=== PATIENT | female | born 1935 | race Caucasian/White ===

== ENCOUNTER → 2016-03-31 | Outpatient (CLI) | payer OTHER | LOC: MMPC 09:00 | PROVIDERS: ATTEND Family Medicine | DX: L03.115 Cellulitis of right lower limb (principal); L03.116 Cellulitis of left lower limb; R60.0 Localized edema | CPT/HCPCS: 99213; G0463 ==

== ENCOUNTER → 2016-06-07 | Outpatient (CLI) | payer OTHER | LOC: MMPC 09:00 | PROVIDERS: ATTEND Family Medicine | DX: F32.0 Major depressive disorder, single episode, mild (principal); M79.2 Neuralgia and neuritis, unspecified; F03.90 Unspecified dementia, unspecified severity, without behavioral disturbance, psychotic disturbance, mood disturbance, and anxiety; Z86.79 Personal history of other diseases of the circulatory system; Z86.73 Personal history of transient ischemic attack (TIA), and cerebral infarction without residual deficits | CPT/HCPCS: 99213; G0463 ==

== ENCOUNTER → 2016-07-19 | Outpatient (CLI) | payer OTHER | LOC: MMPC 09:00 | PROVIDERS: ATTEND Family Medicine | DX: F32.0 Major depressive disorder, single episode, mild (principal); F03.90 Unspecified dementia, unspecified severity, without behavioral disturbance, psychotic disturbance, mood disturbance, and anxiety | CPT/HCPCS: 99212; G0463 ==

== ENCOUNTER → 2016-08-23 | Outpatient (CLI) | payer OTHER ==
--- NOTE | 2016-08-23 14:02 | DI ---
MRI BRAIN W/O CN,08/23/2016 9:41 AM: Clinical History: Transient ischemic attack. Previous Exam: None at this facility. Findings: Multiplanar MR images are obtained through the brain without contrast, and demonstrate diffuse age-re lated volume loss. There are multiple scattered areas of increased FLAIR and T2 signal predominantly within the periventricular white matter. There is also some within the subcortical white matter. The lenses within both orbits there are asymmetric most consistent with prior surgery. There is no abnormally restricted diffusion. The midline structures are unremarkable except for the a ge-related volume loss. There is no parasellar mass. Cerebellopontine angles and posterior fossa are unremarkable. The clivus and upper cervical spine are unremarkable as well. Impression: Diffuse age-related volume loss and multiple scattered areas of increased FLAIR and T2 signal through out the white matter bilaterally most consistent with diffuse small vessel ischemic change.
== END ==
LOC: MRI 09:31
PROVIDERS: ATTEND Family Medicine
DX: G45.9 Transient cerebral ischemic attack, unspecified (principal); I99.8 Other disorder of circulatory system
CPT/HCPCS: 70551

== ENCOUNTER → 2016-08-24 | Outpatient (CLI) | payer OTHER | LOC: US 08:53 | PROVIDERS: ATTEND Family Medicine | DX: I10 Essential (primary) hypertension (principal); R06.00 Dyspnea, unspecified; I27.2 Other secondary pulmonary hypertension; I05.0 Rheumatic mitral stenosis | CPT/HCPCS: 93306 ==

== ENCOUNTER 2018-02-20 01:51 | Inpatient (IN) ==
[2018-02-20] MEDS ORDERED: ONDANSETRON 4 MG/2 ML VIAL IVP ONE (02:01)
[2018-02-20] MEDS ORDERED: Sodium Chloride 0.9% 1,000 ML PRIMARY IV ONE (02:01)
[2018-02-20] MEDS ORDERED: Acetaminophen 1000mg Inj 1,000 MG/100 ML VIAL IV PRN (02:01)
[2018-02-20] MEDS ORDERED: LIDOCAINE HCL 2 % 10 ML JELLY URO-JECT TOPICAL PRN ×3 (02:02→06:18)
--- NOTE | 2018-02-20 02:04 | PDOC ---
Fall HPI - General Chief Complaint: Fall Stated Complaint: right arm/facial pain wounds after fall Date Seen by Provider: 02/20/18 Time Seen by Provider: 01:55 Source: POSITIVE: Patient, EMS, skilled nursing records Exam Limitations: POSITIVE: Clinical condition Nurse's Notes Reviewed & Considered: Yes - Record Incomplete EMS Report Reviewed & Considered: Verbal - History of Present Illness Initial Comments: This is a well-developed, well-nourished, uncooperative, 82-year-old female complaining of right shoulder pain. Patient was attempting to get out of bed to go to the bathroom in the alf tonight when she lost her balance and fell to the right side striking her right lateral supraorbital ridge against corner of the wall resulting in laceration to the brow with evulsion lacerations to her right forearm and upper arm as well as pain and decreased movement in her right shoulder. EMS was called to transport the patient here and reports that her right pupil was unreactive. Patient continues to yell and scream and is unable to answer questions and further review of systems is unavailable. Have you received a tetanus shot in the past 10 years?: Unknown Body Location Affected: REPORTS: Head, Upper Extremity (R) Timing: REPORTS: Abrupt Duration: 1/2 hour Severity: Severe Context of Fall: REPORTS: Lost Balance Location of Fall: REPORTS: Home Quality: REPORTS: "Pain" Associated Symptoms: REPORTS: Recalls Injury, Recalls Coming to ER Location of Injuries / Pain: REPORTS: Right, Face, Shoulder, Arm, Forearm Any Prior Injuries Related to Current Complaint?: No - Patient Home Medications Home Medications: Home Medications Oxygen (O2) 3 unit NASAL Continuous #2 unit 09/13/12 Metoprolol Tartrate 25 mg PO BID #60 tab 02/08/15 Pantoprazole Sodium 1 tab PO DAILY #90 tab 03/25/15 Acetaminophen [Tylenol Extra Strength] 1 tab PO TID PRN tab 09/28/15 Mag Hydrox/Aluminum Hyd/Simeth [Antacid Suspension] 30 ml PO Q8H PRN ml 09/29/15 Albuterol Neb Soln 0.083% 1 vial IH QID PRN vial 11/19/15 Menthol/Camphor [Anti-Itch Lotion] 222 ml TOPICAL QD PRN #1 bottle 11/24/15 Aspirin [Aspir 81] 1 tab PO QD tab 12/22/15 Rgnbo-D-Ojvgtzzhzzvtv [Beano] 1 ea PO TIDWM tab 01/11/16 Simethicone [Gas-X] 1 tab PO TID PRN tab 01/11/16 Albuterol Sulfate [Proair Hfa] 1 - 2 puff INH q1 hour PRN puff 02/04/16 Vit Calc,Iron,Folic [ Vitamins] 1 ea PO QD tab 02/18/16 Spironolactone [Aldactone] 1 tab PO DAILY #30 tab 02/18/16 Levothyroxine Sodium 1 tab PO DAILY tab 03/31/16 Clotrimazole 1 applic TOPICAL BID PRN #1 tube 05/25/16 Ondansetron Odt [Zofran ODT] 4 mg SL Q6H PRN #20 tab 01/21/17 hyoscyamine sulfate 0.125 mg tablet 0.125 mg PO QID PRN 01/26/17 ibuprofen 400 mg tablet 400 mg PO Q4-6H PRN 01/26/17 lidocaine 2 % mucosal jelly 1 applic TOPICAL QID 01/26/17 alprazolam 1 mg tablet 1 mg PO TID #30 tab 03/15/17 Budesonide/Formoterol Fumarate [SYMBICORT] 160 mcg INH BID 03/25/17 Emollient Combination No.33 [Eucerin] 1 applic TOPICAL QHS 03/25/17 Polyethylene Glycol 3350 [Miralax] 17 gm PO QAM 03/25/17 escitalopram 20 mg tablet 20 mg PO QDAY #30 tab 08/17/17 topiramate 25 mg tablet 25 mg PO QDAY #30 tab 08/20/17 tramadol 50 mg tablet 50 mg PO Q4H PRN #90 tab 10/31/17 amlodipine 2.5 mg tablet 2.5 mg PO DAILY #90 tab 01/11/18 - Patient Allergies Allergies/Adverse Reactions: Allergies Allergy/AdvReac Type Severity Reaction Status Date / Time codeine Allergy Mild ITCHING Verified 02/20/18 02:21 atorvastatin calcium AdvReac Muscle Verified 02/20/18 02:21 [From Lipitor] aches Past Medical History - heen HEENT History: Denies History Cardiovascular History: Hypertension, CHF Respiratory History: COPD, Home Oxygen Use, Tuberculosis Additional Respiratory History: 2 LPM, TB A CHILD. Gastrointestinal History: GERD Genitourinary History: Denies History Additional Genitourinary History: FULL HYSTERECTOMY. Endocrine History: Hypothyroidism Additional Endocrine History: states not taking meds Musculoskeletal History: Arthritis, Fibromyalgia, Physical Limitation Prosthesis or Implant: No Neurological History: Migraines Blood Disorders: Denies History Psychiatric History: Depression, Anxiety Disorders, Self-Harm Disorders Additional Psychiatric History: SUICIDAL IDEATION 40 YEARS AGO History of Sexually Transmitted Diseases: No Cancer History: Denies History History of MDRO: No History of Other Communicable Diseases: No Alcohol Use: None In the Past 12 Months, Have Used or Abuse Any Substance: None Previous Surgical History: Yes Type / Date of Surgery: FULL HYSTERECTOMY Anesthesia Reactions: No Malignant Hyperthermia: No Significant Family History: No pertinent family hx ROS - Limitations ROS Limitations: Uncooperative (Further review of systems is unavailable.) Fall Physical Exam - General Appearance General Appearance: POSITIVE: Alert, Severe Distress, Uncooperative - HEENT HEENT: POSITIVE: Eyes Inspection Nml, Ears Inspection Nml, Nose Inspection Nml, Oral/Dental Inspect. Nml, Pharynx Inspect. Nml, PERRL, EOMI, Other (Patient with a laceration of the right lateral supraorbital ridge) - Pupil Size Pupil Size: 4 mm: Bilateral - Neck Neck: POSITIVE: Trachea Midline, Decreased ROM (Secondary to pain) - Respiratory / CVS Respiratory / CVS: POSITIVE: No Ecchymosis, Breath Sounds Normal, No Respiratory Distress, Heart Sounds Normal, Regular Rate/Rhythm, Rib Tenderness (No bruising, no crepitus is appreciated. Right lateral ribs) Peripheral Pulses: Radial (R): 4+, Radial (L): 4+ - Abdomen Abdomen: Soft: (All Quadrants), Normal Bowel Sounds: (All Quadrants), Denies Tenderness: (All Quadrants), No Splenomegaly: (All Quadrants), No Hepatomegaly: (All Quadrants), No Guarding: (All Quadrants), No Rebound: (All Quadrants), No Palpable Pulse: (All Quadrants), No Palpabale Mass: (All Quadrants), No Distention: (All Quadrants), No Rigidity: (All Quadrants) - Neuro / Psych Neuro / Psych: POSITIVE: Motor Normal, Sensation Normal, Mood Appropriate, Affect Appropriate - Skin Skin: POSITIVE: Laceration (Right supraorbital ridge and multiple skin avulsions of her right arm.) - Back Back: POSITIVE: Normal Inspection, No CVA Tenderness, Non Tender, Painless ROM, No Vertebral Tenderness - Extremities Extremity Assessment: Non-Tender: (LUE), (RLE), (LLE), Normal ROM: (LUE), (RLE), (LLE), No Edema: (ALL), Normal Inspection: (LLE), (RLE), (LUE), No Swelling: (ALL), Pelvis Stable: (ALL), Normal Tendon Exam: (ALL), Tender: (RUE), Abnormal ROM: (RUE), Ecchymosis: (RUE), Hematoma: (RUE), Avulsion: (RUE) Fall Progress - Results Reviewed by me Xrays/CTs/US Reviewed by me: Yes Discussed with Radiologist: Yes Lab Results Reviewed by Me: Yes CBC and BMP: 02/20/18 02:35 02/20/18 02:35 Lab Results:: Laboratory Results 02/20/18 02/20/18 02/20/18 02:35 02:35 02:35 WBC 10.25 RBC 3.36 L Hgb 10.2 L Hct 31.6 L MCV 94.0 MCH 30.4 MCHC 32.3 L RDW Std Deviation 42.4 RDW Coeff of Earnest 12.8 Plt Count 323 MPV 9.7 Immature Gran % (Auto) 0.4 Neut % (Auto) 62.6 Lymph % (Auto) 27.4 Slope % (Auto) 6.3 Eos % (Auto) 2.8 Baso % (Auto) 0.5 Immature Gran # (Auto) 0.04 Neut # (Auto) 6.41 Lymph # (Auto) 2.81 Slope # (Auto) 0.65 Eos # (Auto) 0.29 Baso # (Auto) 0.05 WBC Morphology Comment Normal morphology Plt Morphology Comment Normal morphology RBC Morph Comment Normal morphology PT 10.1 INR 0.98 Sodium Potassium Chloride Carbon Dioxide Anion Gap BUN Creatinine Estimated GFR BUN/Creatinine Ratio Glucose Calculated Osmolality Calcium Total Bilirubin AST ALT Alkaline Phosphatase C-Reactive Protein Total Protein Albumin Globulin Albumin/Globulin Ratio Ur Collection Type Cath specimen Urine Color Yellow Urine Clarity Clear Urine pH 5.5 Ur Specific Union 1.010 Urine Protein Negative Urine Glucose (UA) Negative Urine Ketones Negative Urine Occult Blood Negative Urine Nitrate Negative Urine Bilirubin Negative Urine Urobilinogen 0.2 Ur Leukocyte Esterase Negative Ur Culture Indicated? Culture not set 12/26/18 02:35 WBC RBC Hgb Hct MCV MCH MCHC RDW Std Deviation RDW Coeff of Earnest Plt Count MPV Immature Gran % (Auto) Neut % (Auto) Lymph % (Auto) Slope % (Auto) Eos % (Auto) Baso % (Auto) Immature Gran # (Auto) Neut # (Auto) Lymph # (Auto) Slope # (Auto) Eos # (Auto) Baso # (Auto) WBC Morphology Comment Plt Morphology Comment RBC Morph Comment PT INR Sodium 133 L Potassium 5.9 H Chloride 103 Carbon Dioxide 20 L Anion Gap 10 BUN 26 H Creatinine 1.5 H Estimated GFR Blast Hole Driller BUN/Creatinine Ratio 17.33 Glucose 95 Calculated Osmolality 280.0 Calcium 9.5 Total Bilirubin 0.3 AST 28 ALT 24 Alkaline Phosphatase 57 C-Reactive Protein 1.4 H Total Protein 7.3 Albumin 4.2 Globulin 3.1 Albumin/Globulin Ratio 1.30 Ur Collection Type Urine Color Urine Clarity Urine pH Ur Specific Union Urine Protein Urine Glucose (UA) Urine Ketones Urine Occult Blood Urine Nitrate Urine Bilirubin Urine Urobilinogen Ur Leukocyte Esterase Ur Culture Indicated? - Patient's Progress Re-Examine Time:: 05:39 Status: POSITIVE: Improved MDM / ED Course: Patient was evaluated, an IV started, blood drawn and sent to the lab for studies, CT of the chest x-ray were obtained. Findings: CBC shows an anemia with a hemoglobin of 10.2 and hematocrit of 31.6. Coag studies show PT of 10.1 and INR 0.98. Comprehensive metabolic panel shows electrolytes dyscrasias and renal failure with a sodium of 133, potassium of 5.9, CO2 of 20, BUN of 26, creatinine 1.5. CRP is 1.4. Urinalysis is negative. Chest x-ray shows no acute cardio James decompensation with comminuted right humeral head fracture. X-ray of her shoulder shows comminuted displaced humeral head fracture. CT scan of her shoulder with 3-D reconstruction shows comminuted displaced humeral head fracture. Assessment: #1 humeral head fracture. #2 hyperkalemia #3 anemia. Plan: Patient being admitted by the hospitalist I consult to Dr. Davis, the on- call orthopedic surgeon who will see the patient later this morning. - Consult Consult (If Yes, Name of Consulting MD & Time Called): Yes (Dr. Davis 0540 hrs 0545hrs) Consulting MD will see pt:: POSITIVE: [facility] Admit Counseled: POSITIVE: Patient, RE: Lab Results, RE: Radiology Results, RE: DX, RE: Need for F/U Patient Care Time - Estimated PCT Patient Care Time (In Minutes): 60 Vital Signs - Recent Vital Signs Vital Signs: Vital Signs (Last 8 hours) Temp Pulse Pulse Resp BP BP Pulse Ox 02/20/18 04:20 80 22 92/59 93 02/20/18 04:11 72 18 99 02/20/18 04:10 71 18 92 02/20/18 03:40 71 22 110/53 93 02/20/18 03:30 70 20 106/79 94 02/20/18 03:15 74 20 122/73 95 02/20/18 02:47 97.4 F 73 20 119/71 96 - VS Reviewed Vital Signs Reviewed: Yes Discharge Clinical Impression: Fracture of bone, Humeral head fracture, Anemia, Hyperkalemia, Renal failure Condition: Poor Follow Up With: MOE DEMARCO [Primary Care Provider] - Date Decision to Admit to Inpatient: 02/20/18 Time Decision to Admit to Inpatient: 05:46
[2018-02-20 02:41] LABS: BASOPHILS # (AUTO) 0.05 10*3/UL; BASOPHILS % (AUTO) 0.5 % (0-1); EOSINOPHILS # (AUTO) 0.29 10*3/UL; EOSINOPHILS % (AUTO) 2.8 % (0-8); Hematocrit [HCT] 31.6 % (37.0-47.0); Hemoglobin [HGB] 10.2 g/dL (12.0-16.0); LYMPHOCYTES # (AUTO) 2.81 10*3/uL; MEAN CORPUSCULAR HEMOGLOBIN 30.4 PG (27-31); MEAN CORPUSCULAR HGB CONC 32.3 g/dL (33-37); MEAN PLATELET VOLUME 9.7 FL (7.4-12.2); MONOCYTES # (AUTO) 0.65 10*3/UL (0.3-0.8); MONOCYTES % (AUTO) 6.3 % (5-15); NEUTROPHILS # (AUTO) 6.41 10*3/UL; NEUTROPHILS % (AUTO) 62.6 % (50-80); RED BLOOD COUNT 3.36 10^6/uL (4.20-5.40)
[2018-02-20 02:42] LABS: PLATELET MORPHOLOGY COMMENT NORMAL MORPHOLOGY (NORM); RBC MORPHOLOGY COMMENT NORMAL MORPHOLOGY (NORM); WBC MORPHOLOGY COMMENT NORMAL MORPHOLOGY (NORM)
[2018-02-20 02:50] LABS: BILIRUBIN,URINE NEGATIVE (NEG); CLARITY,URINE CLEAR (CLEAR); COLOR,URINE YELLOW (Y); GLUCOSE, URINE (UA) NEGATIVE (NEG); OCCULT BLOOD,URINE NEGATIVE (NEG); PH,URINE 5.5 (5.0-8.5); PROTEIN,URINE NEGATIVE (NEG); URINE SAMPLE TYPE CATH SPECIMEN; UROBILINOGEN,URINE 0.2 EU/dL (0.2)
[2018-02-20 02:54] LABS: BLOOD UREA NITROGEN 26 mg/dL (7-22); BUN/CREATININE RATIO 17.33 (6-20); SERUM ALBUMIN 4.2 g/dL (3.5-4.8)
[2018-02-20] MEDS ORDERED: MORPHINE SULFATE 4 MG/1 ML IVP ONE (03:02)
[2018-02-20] MEDS ORDERED: ALBUTEROL SULFATE 2.5 MG/3 ML NEB ONE ×3 (03:06→15:23)
[2018-02-20] MEDS ORDERED: SODIUM POLYSTYRENE SULFONATE 15 GM/60 ML PO ONE (03:06)
[2018-02-20] MEDS ORDERED: LORazepam 2 MG/1 ML VIAL IVP ONE (03:08)
--- NOTE | 2018-02-20 04:59 | DI ---
EXAM: XR Chest, 1 View CLINICAL HISTORY: ITS.REASON fall Physician Notes: Tech Comments: TECHNIQUE: Frontal view of the chest. COMPARISON: 09/19/2015 FINDINGS: Lungs: Unremarkable. No consolidation. Pleural space: No large pleural effusion or pneumothorax. Heart: Cardiac silhouette appears to be improved from previous exam. Mediastinum: Unremarkable. Bones/joints: Displaced proximal right humeral fracture. Lymph nodes: Calcified right paratracheal lymph node is similar to previous exam. IMPRESSION: No focal consolidation noted. No large pleural effusion or pneumothorax. Displaced right proximal humeral fracture.
--- NOTE | 2018-02-20 05:00 | DI ---
EXAM: XR Right Shoulder Complete, 2 or More Views CLINICAL HISTORY: ITS.REASON fall Physician Notes: Tech Comments: TECHNIQUE: Two or more views of the right shoulder. COMPARISON: No relevant prior studies available. FINDINGS: Limitations: Portable technique limits penetration. Bones/joints: Comminuted fracture involving the proximal right humeral head. There appears to be mild anterior displacement of the humeral diaphysis in relation to the humeral head. No obvious dislocation on the scapular view. Soft tissues: Unremarkable. IMPRESSION: Comminuted fracture involving the proximal right humeral head. There appears to be mild anterior displacement of the humeral diaphysis in relation to the humeral head.
--- NOTE | 2018-02-20 05:26 | DI ---
EXAM: CT Head Without Intravenous Contrast CLINICAL HISTORY: fall TECHNIQUE: Axial computed tomography images of the head/brain without intravenous contrast. COMPARISON: 03/24/2017 FINDINGS: Brain: Cerebral atrophy is stable from previous exam. Periventricular and subcortical deep white matter changes are similar to previous exam. No hemorrhage. Ventricles: Unremarkable. No ventriculomegaly. Bones/joints: Unremarkable. No acute fracture. Soft tissues: Unremarkable. Sinuses: Unremarkable as visualized. No acute sinusitis. Mastoid air cells: Unremarkable as visualized. No mastoid effusion. IMPRESSION: No acute intracranial process or significant traumatic injury identified. Chronic underlying incidental findings noted above.
--- NOTE | 2018-02-20 05:33 | DI ---
EXAM: CT Right Upper Extremity Without Intravenous Contrast, Shoulder CLINICAL HISTORY: Fracture. TECHNIQUE: Axial computed tomography images of the right shoulder without intravenous contrast. 3D reconstructed images were created and reviewed. COMPARISON: No relevant prior studies available. FINDINGS: Bones/joints: Comminuted displaced fracture involving the lateral head and greater tubercle of the proximal right humerus. There is anterior displacement of the proximal humeral diaphysis which appears to be foreshortened and somewhat perched on the humeral head. The humeral head remains within the glenoid fossa. Visualized ribs and right clavicle are unremarkable. The scapula is intact. The acromioclavicular joint appears to be maintained. Soft tissues: Minimal suspected edema. Detail limited without contrast. Minimal joint effusion suspected. Lymph nodes: Calcified paratracheal lymph nodes noted. Lung apices: Minimal dependent subsegmental atelectasis at the visualized lung is noted. IMPRESSION: Comminuted and displaced fracture involving the lateral head and greater tubercle of the proximal right humerus. There is anterior displacement of the proximal humeral diaphysis which appears to be foreshortened and somewhat perched on the humeral head. The humeral head remains within the glenoid fossa.
[2018-02-20] MEDS ORDERED: LIDOCAINE W/ SODIUM BICARB 0.5 ML SYR SUBD PRN (06:18)
[2018-02-20] MEDS ORDERED: ALBUTEROL SULFATE 2.5 MG/3 ML NEB PRN (06:18)
[2018-02-20] MEDS ORDERED: HYDROmorphone 2 MG/1 ML IVP PRN ×2 (06:18→10:00)
[2018-02-20] MEDS ORDERED: INSULIN REGULAR, HUMAN 100 UNIT/1 ML - 3 ML SUBCUT ONE (06:18)
[2018-02-20] MEDS ORDERED: CALCIUM CARBONATE 500 MG (TUMS) CHEWABLE TABLET PO PRN (06:18)
[2018-02-20] MEDS ORDERED: ACETAMINOPHEN 325 MG TABLET PO PRN (06:18)
[2018-02-20] MEDS ORDERED: [UNRECOGNIZED DRUG - OTHER] TOPICAL SCH (06:18)
[2018-02-20] MEDS ORDERED: Calcium Gluconate Inj 1,000 MG in Sodium Chloride 0.9% 100 ML IV ONE ×2 (06:18→15:23)
[2018-02-20] MEDS ORDERED: DEXTROSE 50%-WATER SYRINGE 50 ML SYRINGE IVP ONE ×2 (06:18→15:23)
[2018-02-20] MEDS ORDERED: HYDROcodone-APAP 5 MG -325 MG TABLET PO PRN (06:18)
[2018-02-20] MEDS ORDERED: DOCUSATE 100 MG CAPSULE PO PRN (06:18)
[2018-02-20] MEDS ORDERED: HYOSCYAMINE SULFATE 0.125 MG PO PRN (06:18)
[2018-02-20] MEDS ORDERED: FUROSEMIDE 10 MG/1 ML - 2 ML VIAL IVP ONE ×2 (06:18→15:23)
[2018-02-20] MEDS ORDERED: POLYETHYLENE GLYCOL 3350 17 GM POWDER PO SCH ×2 (06:18→09:00)
[2018-02-20] MEDS ORDERED: ONDANSETRON 4 MG/2 ML VIAL IVP PRN (06:18)
[2018-02-20] MEDS ORDERED: ALPRAZolam Tab 1 MG TABLET PO PRN ×2 (06:18→11:51)
[2018-02-20] MEDS: Sodium Chloride 0.9% 1,000 ML PRIMARY IV SCH ×3 (06:44→23:46)
[2018-02-20] MEDS ORDERED: ESCITALOPRAM 10 MG TABLET PO SCH ×2 (06:45→09:00)
[2018-02-20] MEDS ORDERED: LEVOTHYROXINE 50 MCG TABLET PO SCH (06:45)
[2018-02-20] MEDS: SODIUM POLYSTYRENE SULFONATE 15 GM/60 ML PO SCH ×2 (07:58→13:40)
[2018-02-20] MEDS ORDERED: Metoprolol TARTRATE Tab 25 MG TAB PO SCH (09:00)
[2018-02-20] MEDS ORDERED: Topiramate Tab 50 MG TAB PO SCH (09:00)
[2018-02-20] MEDS ORDERED: BUDESONIDE INH SCH (09:00)
[2018-02-20] MEDS ORDERED: PANTOPRAZOLE 40 MG TABLET PO SCH (09:00)
[2018-02-20] MEDS ORDERED: FORMOTEROL FUMARATE INH SCH (09:00)
[2018-02-20] MEDS ORDERED: AmLODIPine Tab 2.5 MG TABLET PO SCH (09:00)
--- NOTE | 2018-02-20 09:06 | CONSULT ---
Consult Note - Consult Reason for Consult: Orthopedic Consult Primary Care Provider: Gael Nelson MD - History of Present Illness History of Present Illness: This is an 82-year-old female who fell at the [facility] this morning. She sustained a highly comminuted four-part fracture of the proximal humerus. I spoke with her son Chaim who lives in [facility] in [place]. He apparently is the power of regroover. He told me that his mother has Alzheimer's dementia although she doesn't want to admit it. He told me also that she has had "a lot of falls lately". He has been concerned about this. He is the only living son. His 2 other siblings have passed on. He told me that his mother mostly lies in bed and doesn't do much walking. The patient complains of expected pain of the right arm although she did not recall having a son. Right upper extremity shows the skin to be intact around the shoulder. Minimal swelling. Some skin tearing of the forearm with Steri-Strips in place. She is able to wiggle her fingers. X-rays and CAT scan have been reviewed of the right upper extremity. The show a highly comminuted four-part proximal humerus fracture with anterior displacement of the shaft relative to the head. The head is not dislocated. Impression: Four-part proximal humerus fracture right in a patient with dementia. Plan: Fixing this is not an option given the amount of comminution. The options include either nonoperative expectant management versus a reverse shoulder arthroplasty. Reverse arthroplasty is not something that I performed. If she decides to go this route, she will likely need to be transferred to someone that can perform this operation. That would likely mean either going south towards [place] or possibly [place]. I will discuss this with Dr. Hunter when he arrives. We can then make a joint decision along with the son. Past Medical History Medical History: Congestive heart failure, COPD, hypertension, anxiety Family History: Reviewed an Not Pertinent (Patient does not volunteer family history) Tobacco Use: Never Smoker In the Past 12 Months, Have Used or Abuse Any of the Following Substance: None Medication / Allergies Home Medications: Home Medications Medication Instructions Recorded Confirmed Type Oxygen (O2) 3 unit NASAL Continuous #2 unit 09/13/12 02/20/18 History Metoprolol Tartrate 25 mg PO BID #60 tab 02/08/15 02/20/18 History Pantoprazole Sodium 1 tab PO DAILY #90 tab 03/25/15 02/20/18 History Acetaminophen [Tylenol Extra 1 tab PO TID PRN tab 09/28/15 02/20/18 History Strength] Mag Hydrox/Aluminum Hyd/Simeth 30 ml PO Q8H PRN ml 09/29/15 02/20/18 History [Antacid Suspension] Albuterol Neb Soln 0.083% 1 vial IH QID PRN vial 11/19/15 02/20/18 History Menthol/Camphor [Anti-Itch Lotion] 222 ml TOPICAL QD PRN #1 bottle 11/24/15 02/20/18 History Aspirin [Aspir 81] 1 tab PO QD tab 12/22/15 02/20/18 History Gcatn-I-Ktdrmhmoknlyf [Beano] 1 ea PO TIDWM tab 01/11/16 02/20/18 History Simethicone [Gas-X] 1 tab PO TID PRN tab 01/11/16 02/20/18 History Albuterol Sulfate [Proair Hfa] 1 - 2 puff INH q1 hour PRN puff 02/04/16 02/20/18 History Vit Calc,Iron,Folic 1 ea PO QD tab 02/18/16 02/20/18 History [ Vitamins] Spironolactone [Aldactone] 1 tab PO DAILY #30 tab 02/18/16 02/20/18 Rx Levothyroxine Sodium 1 tab PO DAILY tab 03/31/16 02/20/18 History Clotrimazole 1 applic TOPICAL BID PRN #1 tube 05/25/16 02/20/18 History Ondansetron Odt [Zofran ODT] 4 mg SL Q6H PRN #20 tab 01/21/17 02/20/18 Rx hyoscyamine sulfate 0.125 mg tablet 0.125 mg PO QID PRN 01/26/17 02/20/18 History ibuprofen 400 mg tablet 400 mg PO Q4-6H PRN 01/26/17 02/20/18 History lidocaine 2 % mucosal jelly 1 applic TOPICAL QID 01/26/17 02/20/18 History alprazolam 1 mg tablet 1 mg PO TID #30 tab 03/15/17 02/20/18 Rx Budesonide/Formoterol Fumarate 160 mcg INH BID 03/25/17 02/20/18 History [SYMBICORT] Emollient Combination No.33 1 applic TOPICAL QHS 03/25/17 02/20/18 History [Eucerin] Polyethylene Glycol 3350 [Miralax] 17 gm PO QAM 03/25/17 02/20/18 History escitalopram 20 mg tablet 20 mg PO QDAY #30 tab 08/17/17 02/20/18 Rx topiramate 25 mg tablet 25 mg PO QDAY #30 tab 08/20/17 02/20/18 Rx tramadol 50 mg tablet 50 mg PO Q4H PRN #90 tab 10/31/17 02/20/18 History amlodipine 2.5 mg tablet 2.5 mg PO DAILY #90 tab 01/11/18 02/20/18 Rx Allergies/Adverse Reactions: Allergies Allergy/AdvReac Type Severity Reaction Status Date / Time codeine Allergy Mild ITCHING Verified 02/20/18 06:20 atorvastatin calcium AdvReac Muscle Verified 02/20/18 06:20 [From Lipitor] aches Exam - Vitals Vital Signs: Vital Signs Temperature 97.6 F Temperature Source Temporal Artery Scan Pulse Rate [Pulse Oximeter] 79 Pulse Rate 90 Respiratory Rate 18 Blood Pressure [Left Arm] 129/63 Blood Pressure 92/59 Pulse Ox 94 Oxygen Flow Rate 2 Oxygen Delivery Method Nasal Cannula Height 5 ft 2 in Weight 154 lb 12.8 oz Results - Labs CBC and BMP: 02/20/18 02:35 02/20/18 02:35
--- NOTE | 2018-02-20 10:15 | EKG ---
[address] [place] [id number] Measurements Intervals [place] Rate: 81 P: 29 MD: 169 QRS: 15 QRSD: 74 T: 4 QT: 366 QTc: 403 Interpretive Statements SINUS RHYTHM LOW QRS VOLTAGE IN PRECORDIAL LEADS Compared to ECG 03/26/2017 09:12:30 Sinus arrhythmia no longer present Myocardial infarct finding no longer present Electronically Signed On 02-20-18 11:17:57 MST by Rian Redd [email or web address]
[2018-02-20 10:31] LABS: BLOOD UREA NITROGEN 23 mg/dL (7-22); BUN/CREATININE RATIO 19.16 (6-20)
--- NOTE | 2018-02-20 11:44 | PDOC ---
HPI - History of Present Illness Date of Service: 02/20/18 Time of Service: 11:39 Chief Complaint: Right shoulder pain History of Present Illness: This is an 82-year-old female with advanced dementia, severe anxiety, amongst other medical issues who apparently has been having more falls [place] the local [place]. She presented after a fall that was unwitnessed as far as I can tell, and her history is compromised completely by her dementia. The only thing she complains to me about his right shoulder pain. It is obviously swollen. X-rays and CT scan were positive for a comminuted humeral head fracture on the right side. She has developed kidney failure with a high potassium. There were no peaked T waves, luckily, on EKG. I cannot get any information on exacerbating factors from the patient because of her dementia at all. There were no documented fevers in the emergency room. Urinalysis was done and it appears negative. Pain medications thus far have not been controlling the patient's pain to a great degree. I spoke with the patient's son, Chaim, at [phone], and after risks and benefits of surgery versus a conservative approach to the healing of this fracture, he currently favors a conservative approach. Past Medical History Medical History: Congestive heart failure, COPD, hypertension, anxiety, depression, advanced dementia Surgical History: I cannot obtain this information from the patient due to her dementia. On my review of her medical record, the following surgeries were listed. History of esophagogastroduodenoscopy. Status post carpal tunnel release. Status post hysterectomy. Status post laser cataract surgery Family History: Reviewed an Not Pertinent (Patient does not volunteer family history) Pertinent Family History: I cannot obtain this from the patient due to her ary ntia. She has 2 children that have passed on on my review of the medical record. Past Social History: Patient does not smoke or drink alcohol. She resides at [facility]. She has 1 son, Chaim, , who lives in [place], [place]. Tobacco Use: Former Smoker (On my review of the medical record, the patient had a history of smoking in the past.) In the Past 12 Months, Have Used or Abuse Any of the Following Substance: None Alcohol Use: None Medication / Allergies Home Medications: Home Medications Medication Instructions Recorded Confirmed Type Oxygen (O2) 3 unit NASAL Continuous #2 unit 09/13/12 02/20/18 History Metoprolol Tartrate 25 mg PO BID #60 tab 02/08/15 02/20/18 History Pantoprazole Sodium 1 tab PO DAILY #90 tab 03/25/15 02/20/18 History Acetaminophen [Tylenol Extra 1 tab PO TID PRN tab 09/28/15 02/20/18 History Strength] Mag Hydrox/Aluminum Hyd/Simeth 30 ml PO Q8H PRN ml 09/29/15 02/20/18 History [Antacid Suspension] Albuterol Neb Soln 0.083% 1 vial IH QID PRN vial 11/19/15 02/20/18 History Menthol/Camphor [Anti-Itch Lotion] 222 ml TOPICAL QD PRN #1 bottle 11/24/15 02/20/18 History Aspirin [Aspir 81] 1 tab PO QD tab 12/22/15 02/20/18 History Cyhyr-Y-Qifvirqbkhncb [Beano] 1 ea PO TIDWM tab 01/11/16 02/20/18 History Simethicone [Gas-X] 1 tab PO TID PRN tab 01/11/16 02/20/18 History Albuterol Sulfate [Proair Hfa] 1 - 2 puff INH q1 hour PRN puff 02/04/16 02/20/18 History Vit Calc,Iron,Folic 1 ea PO QD tab 02/18/16 02/20/18 History [ Vitamins] Spironolactone [Aldactone] 1 tab PO DAILY #30 tab 02/18/16 02/20/18 Rx Levothyroxine Sodium 1 tab PO DAILY tab 03/31/16 02/20/18 History Clotrimazole 1 applic TOPICAL BID PRN #1 tube 05/25/16 02/20/18 History Ondansetron Odt [Zofran ODT] 4 mg SL Q6H PRN #20 tab 01/21/17 02/20/18 Rx hyoscyamine sulfate 0.125 mg tablet 0.125 mg PO QID PRN 01/26/17 02/20/18 History ibuprofen 400 mg tablet 400 mg PO Q4-6H PRN 01/26/17 02/20/18 History lidocaine 2 % mucosal jelly 1 applic TOPICAL QID 01/26/17 02/20/18 History alprazolam 1 mg tablet 1 mg PO TID #30 tab 03/15/17 02/20/18 Rx Budesonide/Formoterol Fumarate 160 mcg INH BID 03/25/17 02/20/18 History [SYMBICORT] Emollient Combination No.33 1 applic TOPICAL QHS 03/25/17 02/20/18 History [Eucerin] Polyethylene Glycol 3350 [Miralax] 17 gm PO QAM 03/25/17 02/20/18 History escitalopram 20 mg tablet 20 mg PO QDAY #30 tab 08/17/17 02/20/18 Rx topiramate 25 mg tablet 25 mg PO QDAY #30 tab 08/20/17 02/20/18 Rx tramadol 50 mg tablet 50 mg PO Q4H PRN #90 tab 10/31/17 02/20/18 History amlodipine 2.5 mg tablet 2.5 mg PO DAILY #90 tab 01/11/18 02/20/18 Rx Allergies/Adverse Reactions: Allergies Allergy/AdvReac Type Severity Reaction Status Date / Time codeine Allergy Mild ITCHING Verified 02/20/18 06:20 atorvastatin calcium AdvReac Muscle Verified 02/20/18 06:20 [From Lipitor] aches Review of Systems - Review of Systems ROS Unobtainable: Due to Mental Status (Due to her dementia I cannot obtain a review systems.) Exam - Vitals Vital Signs: Vital Signs Temperature 97.8 F Temperature Source Temporal Artery Scan Pulse Rate [Pulse Oximeter] 96 Pulse Rate 90 Respiratory Rate 20 Blood Pressure [Left Arm] 123/62 Blood Pressure 92/59 Pulse Ox 92 Oxygen Flow Rate 2 Oxygen Delivery Method Nasal Cannula Height 5 ft 2 in Weight 154 lb 12.8 oz - General General Appearance: No Acute Distress Additional General Exam Details: Does not answer my questions directly due to her dementia. - Head Head Exam: Normal Inspection, Normocephalic Additional Head Exam Details: She had some dried blood above her right orbit - Eye Eye Exam: POSITIVE: No Scleral Icterus - ENT ENT Exam: POSITIVE: Mucous Membranes Moist - Neck Neck Exam: Normal Inspection, No Tenderness, No Lymphadenopathy, No Thyromegaly, JVP is not Raised - Respiratory Respiratory Exam: POSITIVE: Clear to Auscultation - Bilaterally, Breathing Non Labored - Cardiovascular Cardiovascular Exam: POSITIVE: RRR, No Murmur, No Clicks, No Gallops, No Rubs, No JVD - GI/Abdominal GI/Abdominal Exam: POSITIVE: Normal Bowel Sounds, Non Tender, Non Distended, Soft - Rectal Rectal Exam: POSITIVE: Deferred - External Exam: POSITIVE: Deferred Exam: POSITIVE: Deferred - Extremities Extremities Exam: POSITIVE: No Clubbing Present, No Edema Present, No Cyanosis Present, Joint Swelling (There is significant swelling in the right shoulder region.) - Neurological Neurological Exam: POSITIVE: Alert, No Facial Droop, Speech Intact / Clear, Altered (She is not oriented to place, time, or situation.) - Psychiatric Psychiatric Exam: POSITIVE: Anxious Results - Labs CBC and BMP: 02/20/18 02:35 02/20/18 10:09 Additional Lab Results: Laboratory Results 02/20/18 02/20/18 02/20/18 02:35 02:35 02:35 WBC 10.25 RBC 3.36 L Hgb 10.2 L Hct 31.6 L MCV 94.0 MCH 30.4 MCHC 32.3 L RDW Std Deviation 42.4 RDW Coeff of Earnest 12.8 Plt Count 323 MPV 9.7 Immature Gran % (Auto) 0.4 Neut % (Auto) 62.6 Lymph % (Auto) 27.4 Mckean % (Auto) 6.3 Eos % (Auto) 2.8 Baso % (Auto) 0.5 Immature Gran # (Auto) 0.04 Neut # (Auto) 6.41 Lymph # (Auto) 2.81 Mckean # (Auto) 0.65 Eos # (Auto) 0.29 Baso # (Auto) 0.05 WBC Morphology Comment Normal morphology Plt Morphology Comment Normal morphology RBC Morph Comment Normal morphology PT 10.1 INR 0.98 Sodium Potassium Chloride Carbon Dioxide Anion Gap BUN Creatinine Estimated GFR BUN/Creatinine Ratio Glucose Calculated Osmolality Calcium Total Bilirubin AST ALT Alkaline Phosphatase C-Reactive Protein Total Protein Albumin Globulin Albumin/Globulin Ratio Ur Collection Type Cath specimen Urine Color Yellow Urine Clarity Clear Urine pH 5.5 Ur Specific [place] 1.010 Urine Protein Negative Urine Glucose (UA) Negative Urine Ketones Negative Urine Occult Blood Negative Urine Nitrate Negative Urine Bilirubin Negative Urine Urobilinogen 0.2 Ur Leukocyte Esterase Negative Ur Culture Indicated? 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 - EKG Data -: EKG Interpreted by Me Rate: Normal EKG Shows Normal: Sinus Rhythm - Imaging Status: Image Reviewed by Me (Patient has a chest x-ray that does not show any evidence of acute cardiopulmonary disease process. X-ray of her shoulder shows a humeral head fracture. It looks comminuted on the CT scan.) Assessment and Plan - Patient Problems (1) Renal failure Current Visit: Yes Status: Acute Code(s): N19 - Unspecified kidney failure Qualifiers: Renal failure chronicity: acute Acute renal failure type: unspecified Qualified Code(s): N17.9 - Acute kidney failure, unspecified (2) Hyperkalemia Current Visit: Yes Status: Acute Code(s): E87.5 - Hyperkalemia (3) Humeral head fracture Current Visit: Yes Status: Acute Code(s): S42.293A - Other displaced fracture of upper end of unspecified humerus, initial encounter for closed fracture Qualifiers: Encounter type: initial encounter Fracture type: closed Laterality: right Qualified Code(s): S42.291A - Other displaced fracture of upper end of right humerus, initial encounter for closed fracture (4) Polypharmacy Current Visit: No Status: Acute Onset Date: 09/13/12 Code(s): Z79.899 - Other intermediate project manager (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 therapy (5) Vitamin D deficiency Current Visit: No Status: Acute Onset Date: 09/13/12 Code(s): E55.9 - Vitamin D deficiency, unspecified (6) Hypothyroidism Current Visit: No Status: Acute Onset Date: 06/10/12 Code(s): E03.9 - Hypothyroidism, unspecified Qualifiers: Hypothyroidism type: unspecified Qualified Code(s): E03.9 - Hypothyroidism, unspecified; E03.9 - Hypothyroidism, unspecified; E03.9 - Hypothyroidism, unspecified (7) Hx-TIA (transient ischemic attack) Current Visit: No Status: Acute Onset Date: 03/31/16 Code(s): Z86.73 - Personal history of transient ischemic attack (TIA), and cerebral infarction without residual deficits (8) COPD (chronic obstructive pulmonary disease) Current Visit: No Status: Acute Code(s): J44.9 - Chronic obstructive pulmonary disease, unspecified Qualifiers: COPD type: COPD with acute exacerbation Qualified Code(s): J44.1 - Chronic obstructive pulmonary disease with (acute) exacerbation; J44.1 - Chronic obstructive pulmonary disease with (acute) exacerbation; J44.1 - Chronic ob structive pulmonary disease with (acute) exacerbation; J44.1 - Chronic obstructive pulmonary disease with (acute) exacerbation (9) Dementia Current Visit: No Status: Acute Code(s): F03.90 - Unspecified dementia without behavioral disturbance Qualifiers: Dementia type: Alzheimer's disease Alzheimer's disease onset: late-onset Dementia behavioral disturbance: with behavioral disturbance Qualified Code( s): G30.1 - Alzheimer's disease with late onset - Assessment / Plan Additional Assessment/Plan Details: Admit the patient. Given her hyperkalemia and renal failure, although creatinine is not markedly elevated, it has certainly doubled from her pattern established in the past by reviewing her labs. She is at significant risk for cardiac event or if we cannot get this potassium under better control. She needs IV medications including calcium gluconate, IV fluids, IV Lasix, to help bring this potassium down. In terms of the fracture, I spoke with orthopedics and they saw the patient already. The recommendation was either a reverse shoulder arthroplasty or conservative management. In discussion of the risks and benefits, particularly worsening dementia in the setting of anesthesia, the patient's son, Chaim, at [phone], prefers a conservative approach to start out with. Pain medications for shoulder. I think we really need to adjust the polypharmacy. In particular we need to titrate down his Xanax which could be putting her at risk to fall. I think we'll try to stop extra medications as much as possible. Recheck potassium and creatinine. CODE STATUS discussed with son, and he states DO NOT RESUSCITATE. Plan above discussed with son and he agreed with the plan.
[2018-02-20] MEDS: HYDROcodone-APAP 7.5 MG-325 MG TABLET PO SCH ×3 (13:39→18:10)
[2018-02-20 14:38] LABS: BLOOD UREA NITROGEN 23 mg/dL (7-22); BUN/CREATININE RATIO 15.33 (6-20)
[2018-02-20] MEDS ORDERED: INSULIN REGULAR, HUMAN 100 UNIT/1 ML - 3 ML SUBCUT SCH (15:30)
[2018-02-20 15:44] LABS: VENOUS PH 7.18 (7.32-7.42)
[2018-02-20] MEDS ORDERED: D5-1/2NS 1,000 ML with Sodium Bicarb 150 MEQ IV ONE ×2 (15:50)
[2018-02-20] MEDS ORDERED: SODIUM BICARBONATE 8.4% - 50 ML ADULT SYRINGE IVP ONE (16:15)
--- NOTE | 2018-02-20 16:17 | PTI REPORT ---
Thank you for the referral of Kelsy Camarillo. She was seen on 02/20/18 for an inpatient evaluation status post right humeral head fracture. SUBJECTIVE: The patient is an 82-year-old female. The patient reports that her right arm is very sore; she is in a lot of pain and doesn't wish to move it. The patient lives at the [facility]. The patient previously could walk short distances independently, used a walker at times, and walked using a single hand rail. The patient fell while reaching for her walker per reports of staff. PAST MEDICAL HISTORY: Past medical history can be found in the patient's medical record. OBJECTIVE FINDINGS: General observations: Nursing okayed treatment prior to PT. The patient was fit with a sling on her right arm. Bed mobility: The patient required mod assist x2 for supine to sit transfer to edge of bed. Seated balance is fair. ASSESSMENT: The patient is an 82-year-old female that presents status post right humeral head fracture. It is to be determined whether or not the patient is going to have surgery at this time. The patient would benefit from skilled therapy in order to improve functional mobility so that she can return to prior level of function. The patient's prognosis for therapy is fair. Problem List: Decreased strength Decreased endurance Decreased functional mobility Short-Term Goals: To be met by discharge from inpatient: Patient will be able to ambulate 150 feet independently per prior level of function. Patient will be able to tolerate 15 minutes of continuous activity. Long-Term Goals: To be met following discharge from inpatient: Patient will be able to return to the [facility] per prior level of function. TREATMENT PLAN: Patient will be seen B.I.D during the week and one time per day over the weekend as an inpatient for therapeutic exercise, functional mobility, neuromuscular reeducation, gait training, and modalities as needed. INITIAL TREATMENT: Treatment today consisted of the initial evaluation followed by the patient transferring from supine to sitting edge of bed. The patient fatigued quickly and was repositioned back in bed due to pain after seated edge of bed for approximately five minutes. FABRIZIO
--- NOTE | 2018-02-20 16:33 | OT.PROG ---
Progress Note Progress Note: Attempted therapy services this afternoon but pt was medically not stable enough to participate in therapy and was unable to be woken.
[2018-02-20] MEDS ORDERED: SCOPOLAMINE HYDROBROMIDE 1.5 MG - 1 EACH PATCH TRANSDERM SCH (16:45)
[2018-02-20] MEDS ORDERED: Morphine Drip 250mg/250ml 250 MG/250 ML PLAST..BAG IV SCH (16:45)
[2018-02-20] MEDS ORDERED: Sodium Chloride 0.9% 1,000 ML PRIMARY IV SCH (16:45)
--- NOTE | 2018-02-20 16:50 | OTI REPORT ---
Thank you for the referral of Kelsy Camarillo. She was seen on 02/20/18 for an occupational therapy inpatient evaluation status post right humeral head fracture. SUBJECTIVE: The patient is an 82-year-old female. She does live at the care home. The patient reports that she mostly ambulates with a four wheeled walker and other times just using the railings in the hallways greater than 200 feet. We were unable to get a history on the patient's independence with dressing. The patient did fall at the care home and ended up fracturing her humeral head. PAST MEDICAL HISTORY: Past medical history can be found in the patient's medical record. OBJECTIVE FINDINGS: General observations: Upon arrival into her room, the patient did have a sling on her arm and PT was working on getting the patient to the edge of bed. Bed mobility: The patient did require max assist x2 to maneuver to sitting edge of bed. The patient only tolerated sitting edge of bed for approximately a minute or two before she required max assist x2 to move back to supine. Pain: The patient reported pain in her arm, but was unable to rate it on the verbal analog scale (0=no pain, 10=worst pain). Range of motion/Strength/Activities of daily living: The patient refused to complete any range of motion or strength testing as well as any ADL demonstrations. ASSESSMENT: Problem List: Decreased strength Decreased endurance Occupational Therapy Goals: To be met by discharge from inpatient: Patient will complete functional transfers with use of front wheeled walker with possible trough for right arm or a cane, depending on her balance and safety. Patient will complete lower extremity and upper extremity dressing with min assist using adaptive equipment if necessary. Patient will complete all grooming tasks with mod independence. TREATMENT PLAN: Patient will be seen B.I.D during the week and one time per day over the weekend as an inpatient to address the above goals and objectives. INITIAL TREATMENT: Treatment today consisted of the initial evaluation activities only. Following treatment the patient was repositioned in bed with a pillow under her right shoulder and a pillow under her legs. The patient was given call light and bed alarm was turned on. FABRIZIO
[2018-02-20] MEDS ORDERED: Keys-Morphine Palliative Care ONE (16:59)
[2018-02-20] MEDS: Hypromellose/Glycerin/PEG 400 Ophth Soln 15 ML DROPS EACH EYE SCH ×3 (18:11→20:45)
[2018-02-20] MEDS ORDERED: FLUTICASONE/SALMETEROL 250/50 UD INHALER INH SCH (19:00)
--- NOTE | 2018-02-21 00:32 | DCSUMMARY ---
Hospitalization Summary Admit Date: 02/20/2018 Discharge Date: 02/21/18 Primary Diagnosis:: acute oliguric renal failure Secondary Diagnosis:: Metabolic and respiratory acidosis Hospital Course: This is an 82-year-old female that presented to the hospital after having had a fall and a severe humeral head fracture that was comminuted and she was admitted in the setting of this. It was also noted that she had acute renal failure, hyperkalemia, and we started measures to try and bring the potassium down. The patient only had 50 mL of urine out through the entire day and it became clear that she was acidotic, probably both respiratory and metabolic with a low CO2 on basic metabolic panel as well as an elevated CO2 on her venous blood gas, though interestingly her lactic acid was normal. She suffers from advanced dementia, COPD, amongst other medical issues, and this had increased difficulties with falls reportedly at the shelter. Despite our best efforts to try and improve the potassium and kidney function, the potassium actually worsened through the day. I spoke with the kidney specialist and hospitalist in [place], and after discussion of the patient's case, we felt that it would be best to give the patient's son the option of considering treatment of primary symptoms of pain and discomfort only, knowing that given her acidosis and her kidney failure that the patient was likely to regardless of anything we can do and she is not a dialysis candidate. I spoke with the patient's son regarding these issues and Chaim, at [phone], who lives in [place], understood the risks and benefits of both continued medical treatment and treatment of primary symptoms of pain and discomfort. He expressed that he did not think that his mother would want aggressive therapy if she was going to . He stated to me that he felt that her quality of life with her dementia was quite poor and that she was often not even getting out of bed to walk. Given his understanding of his mother's wishes, he requested that we stop treatment, and treat only symptoms of primary pain and discomfort. We started a morphine drip, and it took her a few hours to get the patient's pain under some good control. She was in writing pain even at 15 mg an hour and stated "I hurt all over". Above 20 mg an hour, we finally got good pain relief for the patient. She passed comfortably related to her kidney failure, dementia, and overall failure to thrive on 02/21/2018 just past midnight. I informed her son and he thanked us for the care provided. Exam - Vitals Vital Signs: Vital Signs Patient is on examination. Data Peritnent Studies: Laboratory Results 02/20/18 02/20/18 02/20/18 02:35 02:35 02:35 WBC 10.25 RBC 3.36 L Hgb 10.2 L Hct 31.6 L MCV 94.0 MCH 30.4 MCHC 32.3 L RDW Std Deviation 42.4 RDW Coeff of Earnest 12.8 Plt Count 323 MPV 9.7 Immature Gran % (Auto) 0.4 Neut % (Auto) 62.6 Lymph % (Auto) 27.4 [place] % (Auto) 6.3 Eos % (Auto) 2.8 Baso % (Auto) 0.5 Immature Gran # (Auto) 0.04 Neut # (Auto) 6.41 Lymph # (Auto) 2.81 [place] # (Auto) 0.65 Eos # (Auto) 0.29 Baso # (Auto) 0.05 WBC Morphology Comment Normal morphology Plt Morphology Comment Normal morphology RBC Morph Comment Normal morphology PT 10.1 INR 0.98 VBG pH VBG pCO2 VBG HCO3 VBG Base Excess Sodium Potassium Chloride Carbon Dioxide Anion Gap BUN Creatinine Estimated GFR BUN/Creatinine Ratio Glucose Calculated Osmolality Lactic Acid Calcium Total Bilirubin AST ALT Alkaline Phosphatase C-Reactive Protein Total Protein Albumin Globulin Albumin/Globulin Ratio Ur Collection Type Cath specimen Urine Color Yellow Urine Clarity Clear Urine pH 5.5 Ur Specific [place] 1.010 Urine Protein Negative Urine Glucose (UA) Negative Urine Ketones Negative Urine Occult Blood Negative Urine Nitrate Negative Urine Bilirubin Negative Urine Urobilinogen 0.2 Ur Leukocyte Esterase Negative Ur Culture Indicated? Culture not set 02/20/18 02/20/18 02/20/18 02:35 10:09 14:20 WBC RBC Hgb Hct MCV MCH MCHC RDW Std Deviation RDW Coeff of Earnest Plt Count MPV Immature Gran % (Auto) Neut % (Auto) Lymph % (Auto) [place] % (Auto) Eos % (Auto) Baso % (Auto) Immature Gran # (Auto) Neut # (Auto) Lymph # (Auto) [place] # (Auto) Eos # (Auto) Baso # (Auto) WBC Morphology Comment Plt Morphology Comment RBC Morph Comment PT INR VBG pH VBG pCO2 VBG HCO3 VBG Base Excess Sodium 133 L 134 L 136 Potassium 5.9 H 5.7 H 6.5 H* Chloride 103 105 104 Carbon Dioxide 20 L 20 L 20 L Anion Gap 10 9 12 BUN 26 H 23 H 23 H Creatinine 1.5 H 1.2 1.5 H Estimated GFR Client Service Supervisor Client Service Supervisor BUN/Creatinine Ratio 17.33 19.16 15.33 Glucose 95 148 H 98 Calculated Osmolality 280.0 284.0 285.0 Lactic Acid Calcium 9.5 9.2 9.2 Total Bilirubin 0.3 AST 28 ALT 24 Alkaline Phosphatase 57 C-Reactive Protein 1.4 H Total Protein 7.3 Albumin 4.2 Globulin 3.1 Albumin/Globulin Ratio 1.30 Ur Collection Type Urine Color Urine Clarity Urine pH Ur Specific [place] Urine Protein Urine Glucose (UA) Urine Ketones Urine Occult Blood Urine Nitrate Urine Bilirubin Urine Urobilinogen Ur Leukocyte Esterase Ur Culture Indicated? 02/20/18 02/20/18 15:40 15:41 WBC RBC Hgb Hct MCV MCH MCHC RDW Std Deviation RDW Coeff of Earnest Plt Count MPV Immature Gran % (Auto) Neut % (Auto) Lymph % (Auto) [place] % (Auto) Eos % (Auto) Baso % (Auto) Immature Gran # (Auto) Neut # (Auto) Lymph # (Auto) [place] # (Auto) Eos # (Auto) Baso # (Auto) WBC Morphology Comment Plt Morphology Comment RBC Morph Comment PT INR VBG pH 7.18 L VBG pCO2 57 H VBG HCO3 21 L VBG Base Excess -7 L Sodium Potassium Chloride Carbon Dioxide Anion Gap BUN Creatinine Estimated GFR BUN/Creatinine Ratio Glucose Calculated Osmolality Lactic Acid 1.3 Calcium Total Bilirubin AST ALT Alkaline Phosphatase C-Reactive Protein Total Protein Albumin Globulin Albumin/Globulin Ratio Ur Collection Type Urine Color Urine Clarity Urine pH Ur Specific [place] Urine Protein Urine Glucose (UA) Urine Ketones Urine Occult Blood Urine Nitrate Urine Bilirubin Urine Urobilinogen Ur Leukocyte Esterase Ur Culture Indicated? Patient Problems - Patient Problem List (1) COPD (chronic obstructive pulmonary disease) Current Visit: Yes Status: Acute Code(s): J44.9 - Chronic obstructive pulmonary disease, unspecified Qualifiers: COPD type: unspecified COPD Qualified Code(s): J44.9 - Chronic obstructive pulmonary disease, unspecified Category: Medical (2) Renal failure Current Visit: Yes Status: Acute Code(s): N19 - Unspecified kidney failure Qualifiers: Renal failure chronicity: acute Acute renal failure type: unspecified Qualified Code(s): N17.9 - Acute kidney failure, unspecified Category: Medical (3) Hyperkalemia Current Visit: Yes Status: Acute Code(s): E87.5 - Hyperkalemia Category: Medical (4) Humeral head fracture Current Visit: Yes Status: Acute Code(s): S42.293A - Other displaced fracture of upper end of unspecified humerus, initial encounter for closed fracture Qualifiers: Encounter type: initial encounter Fracture type: closed Laterality: right Qualified Code(s): S42.291A - Other displaced fracture of upper end of right humerus, initial encounter for closed fracture Category: Medical (5) Polypharmacy Current Visit: No Status: Acute Onset Date: 09/13/12 Code(s): Z79.899 - Other junior 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 (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 therapy Category: Medical (6) Vitamin D deficiency Current Visit: No Status: Acute Onset Date: 09/13/12 Code(s): E55.9 - Vitamin D deficiency, unspecified Category: Medical (7) Hypothyroidism Current Visit: No Status: Acute Onset Date: 06/10/12 Code(s): E03.9 - Hypothyroidism, unspecified Qualifiers: Hypothyroidism type: unspecified Qualified Code(s): E03.9 - Hypothyroidism, unspecified; E03.9 - Hypothyroidism, unspecified; E03.9 - Hypothyroidism, unspecified Category: Medical (8) Hx-TIA (transient ischemic attack) Current Visit: No Status: Acute Onset Date: 03/31/16 Code(s): Z86.73 - Personal history of transient ischemic attack (TIA), and cerebral infarction without residual deficits Category: Medical (9) Dementia Current Visit: No Status: Acute Code(s): F03.90 - Unspecified dementia without behavioral disturbance Qualifiers: Dementia type: Alzheimer's disease Alzheimer's disease onset: late-onset Dementia behavioral disturbance: with behavioral disturbance Qualified Code(s): G30.1 - Alzheimer's disease with late onset Category: Medical (10) Failure to thrive Current Visit: Yes Status: Acute Category: Medical
[2018-02-21] MEDS ORDERED: ESCITALOPRAM 10 MG TABLET PO SCH (09:00)
[2018-02-22 18:07] VITALS: BP 119/69; RESP 11; TEMP 97.5; O2SAT 96
== END 2018-02-21 00:07 | disposition expired | DRG 683 ==
LOC: ER 01:51 → MED/SURG 05:49
PROVIDERS: ADMIT Family Medicine; ATTEND Family Medicine